=== PATIENT | female | born 1960 | race African-American/Black ===

== ENCOUNTER → 2017-01-15 | Outpatient (CLI) | payer OTHER ==
--- NOTE | ~2017-01-15 | EE ---
Unit #: [id number] #: [id number] Patient: JOHANNY MARTINEZ [id number] [address] [place], [place] [address] [id number] MR#: [id number] NAME: JOHANNY MARTINEZ : 1960 SEX: F STUDY DATE/TIME: 01/15/2017 UNIT: CEEG ROOM: STUDY DESCRIPTION: EEG Attending Physician: Walter Dixon II., M.D. Referring Physician: Walter Dixon II., M.D. 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 TECHNICAL INFORMATION This is a routine EEG performed using the standard International 10-20 System of electrode placement. Photic stimulation was performed. Hyperventilation was also performed. REPORT Throughout the entire study, the best background rhythm seen is approximately 10 Hz. This rhythm is seen in both posterior head regions symmetrically and does attenuate to eye opening and closure. Hyperventilation was performed which failed to reproduce any abnormal buildup. Photic stimulation was also performed which did not elicit any epileptiform abnormalities. However, a good photic driving response was seen. Throughout the entire study, there were no electrographic seizures recorded nor were there any independent epileptiform abnormalities seen. There was no apparent sleep recorded during this study. INTERPRETATION This is a normal awake EEG. A normal EEG does not rule out the possibility of a seizure disorder. Clinical correlation is advised. Dictated by... Walter Dixon II., M.D. GWS/shanelle TD: 01/18/2017 13:05 JOB #: [id number] Unit #: [id number] #: [id number] Patient: JOHANNY MARTINEZ NEURODIAGNOSTICS REPORT Page 1 of 1 X NEURODIAGNOSTICS REPORT
== END | disposition home or self-care (01) ==
LOC: CEEG 10:19
DX: Z09 Encounter for follow-up examination after completed treatment for conditions other than malignant neoplasm (principal); Z86.73 Personal history of transient ischemic attack (TIA), and cerebral infarction without residual deficits
CPT/HCPCS: 95816